=== PATIENT | male | born 1975 | race Caucasian/White ===

== ENCOUNTER 2023-02-09 22:57 | Emergency (ER) | payer BC, SELFPAY ==
[2023-02-09 22:58] VITALS: BP 185/108; PULSE 70; RESP 16; TEMP 36; O2SAT 97; BMI 27.4
[2023-02-09 23:35] VITALS: BP 106/100; PULSE 69; RESP 16; O2SAT 97
--- NOTE | 2023-02-09 23:36 | EDS_ITS ---
HPI History of Present Illness Chief Complaint: Hypertension Informant: patient and spouse/S.O. Narrative Narrative: Patient has been having high blood pressures this past week, he was also having chest tightness prior to going to [facility] in [place], he was admitted and had a stress test and the labs that were all normal and he was discharged several days ago, he was already on lisinopril 10 mg, he was additionally placed on hydrochlorothiazide 12.5 mg daily and metoprolol 12.5 mg twice daily. He just started taking those this morning. He has been feeling well. He checked his blood pressure tonight since he has been doing this several times a day to keep a log, and it was 210 systolic so he presents to the emergency department for that reason. He states earlier today he checked his blood pressure and it was in the 140s and he felt no different. [facility] Medical History Hypertension Home Medications hydrochlorothiazide 12.5 mg tablet 12.5 mg PO DAILY 02/09/23 [History Last Taken Unknown] lisinopril 10 mg tablet 10 mg PO BID 02/09/23 [History Last Taken Unknown] metoprolol tartrate 25 mg tablet 12.5 mg PO BID 02/09/23 [History Last Taken Unknown] Allergy/AdvReac Type Severity Reaction Status Date / Time No Known Allergies Allergy Verified 02/09/23 23:00 Social History Smoking Status: Never smoker [facility] ED Constitutional Constitutional ED: Denies chills or fever(s) Eyes Eyes: Denies change in vision or diplopia ENT ENT ED: Denies rhinorrhea or sore throat Cardiovascular Cardiovascular: Denies chest pain or palpitations Respiratory/Chest Respiratory/Chest: Denies cough or dyspnea Gastrointestinal Gastrointestinal: Denies abdominal pain, diarrhea, nausea or vomiting Genitourinary Genitourinary ED: Denies dysuria or hematuria Musculoskeletal Musculoskeletal: Denies back pain or neck pain Integumentary Denies abscess or rash Neurologic Neurologic: Denies headache(s), paresthesias or weakness Psychiatric Psychiatric: Denies anxiety or suicidal thoughts EXAM Physical Exam Const Vital Signs: 02/09/23 22:58 02/09/23 23:10 Temperature 96.8 F L Temperature Source Temporal Pulse Rate 70 Respiratory Rate 16 Respiratory Effort Normal Non-Labored Respiratory Pattern Normal Blood Pressure 185/108 H Blood Pressure Mean 133 Pulse Ox 97 Oxygen Delivery Method Room Air Positive well nourished and well developed General Appearance ED: well developed and NAD HEENT Reports moist mucous membranes normocephalic and atraumatic Eyes PERRL and EOMs intact bilaterally Neck full ROM and supple Resp normal respiratory effort Back/Spine General Back: other FROM Extremity normal to inspection General Extremety ED: Negative for edema General Extremity: Negative for edema Neuro oriented x3, CN's II-XII intact bilaterally and no sensory deficits noted Sensorium / Orientation: awake and alert Motor Exam: strength 5/5 throughout Skin no rashes or lesions noted and no wounds MDM MDM MDM Narrative Medical decision making narrative: Patient is reassured. His pressure here was 185/108 in triage. He was in the room and systolic was 167, it repeated and was 201/104. He is asymptomatic without having any chest discomfort. No testing indicated especially since he was just admitted and had inpatient labs and stress testing, I am comfortable with him going home after getting an extra dose of lisinopril 10 mg here tonight, and we discussed extra doses that he may take if his pressure becomes very high over the weekend until he follows up with his doctor. He is comforta ble with that plan we discussed reasons to return. Discharge Plan Triage Chief Complaint: Hypertension ED Provider: Gustavo Bella Dx/Rx/DC Orders Clinical Impression: Accelerated hypertension Instructions: Controlling High Blood Pressure Prescriptions: No Action lisinopril 10 mg Tablet 10 mg PO BID metoprolol tartrate 25 mg Tablet 12.5 mg PO BID hydrochlorothiazide 12.5 mg Tablet 12.5 mg PO DAILY Referrals: Doctor,Your [Non-Staff] - [facility] appointment Activity Restrictions/Additional Instructions: If 1 or 2 hours after taking your routine doses of blood pressure medication, your pressure is still high, 170 or over at the top number, you may take additional doses of either lisinopril and/or HCTZ. If your heart rate is over 60, you may additionally take an extra metoprolol 12.5 mg if needed. Disposition Disposition: Home, Self Care
[2023-02-09] MEDS: Lisinopril 10 MG Tablet PO (23:49)
== END 2023-02-10 00:03 | disposition home or self-care (01) ==
PROVIDERS: Emergency Provider Emergency Medicine; PCP Family Medicine; Visit Provider Emergency Medicine
DX: I10 Essential (primary) hypertension (principal); Z79.899 Other long term (current) drug therapy
CPT/HCPCS: 99283